=== PATIENT | female | born 1960 | race Caucasian/White ===

== ENCOUNTER 2020-08-11 02:33 | Emergency (ER) | payer BC, SELFPAY ==
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
--- NOTE | 2020-08-11 02:56 | PC.NURSE ---
CALL OUT TO [facility], TOLD THAT WE WILL GET CALLBACK IN REGARDS TO PATIENT.
--- NOTE | 2020-08-11 03:39 | PC.NURSE ---
CALLED PLACED TO [facility] OFFICE, DR MARTINEZ SPEAKING TO SERVICE AND AWAITING CALL BACK ABOUT ACCEPTANCE
== END 2020-08-11 07:37 | disposition expired ==
PROVIDERS: Emergency Provider Student in an Organized Health Care Education/Training Program
DX: I46.9 Cardiac arrest, cause unspecified (principal)
CPT/HCPCS: 96374; 96375; 99282; 99285; J0171